=== PATIENT | female | born 1955 | race Two or more races ===

== ENCOUNTER 2017-05-05 13:10 | Emergency (ER) | payer OTHER ==
[~2017-05-05] VITALS: Ht 157.5 cm; Wt 67.6 kg
[2017-05-05 14:08] VITALS: BP 141/96
== END 2017-05-05 15:40 | disposition home or self-care (01) ==
LOC: ER 13:11
DX: S91.201A Unspecified open wound of right great toe with damage to nail, initial encounter (principal); L30.8 Other specified dermatitis; Z87.442 Personal history of urinary calculi; Z88.0 Allergy status to penicillin; W22.09XA Striking against other stationary object, initial encounter; Y93.89 Activity, other specified; Y92.89 Other specified places as the place of occurrence of the external cause; Y99.8 Other external cause status
CPT/HCPCS: A4606; Z7502; Z7610